=== PATIENT | male | born 1975 | race Caucasian/White ===

== ENCOUNTER 2016-10-23 18:25 | Emergency (ER) | payer OTHER ==
[~2016-10-23] VITALS: Ht 157.5 cm; Wt 165.6 kg
[2016-10-23 19:50] LABS: ABSOLUTE NEUTROPHILS 12.3 thou/uL (1.4-8.2); BASOPHILS 1.1 % (0.0-2.0); EOSINOPHILS 0.3 % (0.0-3.0); HEMATOCRIT 42.7 % (42.0-52.0); HEMOGLOBIN 13.5 gm/dL (14.0-18.0); LYMPHOCYTES 19.9 % (24.0-44.0); MCH 25.9 pg (26.0-34.0); MCHC 31.6 g/dL (28.0-37.0); MCV 81.9 fL (80.0-100.0); MONOCYTES 6.6 % (1.0-8.0); PLATELET COUNT 311 thou/uL (150-400); POLYS 72.1 % (36.0-66.0); RBC 5.22 mil/uL (4.50-6.00); RDW 15.8 % (10.5-14.5); WBC 17.1 thou/uL (4.0-11.0)
[2016-10-23 19:53] LABS: MANUAL DIFF NO
[2016-10-23 19:58] LABS: ANION GAP 5 mmol/L (7-16); BUN 16 mg/dL (7-18); CALCIUM 8.5 mg/dL (8.5-10.1); CHLORIDE 102 mmol/L (98-107); CO2 31 mmol/L (21-32); CREATININE 1.1 mg/dL (0.7-1.3); GLUCOSE 124 mg/dL (74-106); SODIUM 138 mmol/L (136-145)
[2016-10-23 20:05] LABS: ALBUMIN 3.2 g/dL (3.4-5.0); ALKALINE PHOSPHATASE 138 U/L (46-116); MAGNESIUM 1.9 mg/dL (1.8-2.4); SGOT 11 U/L (15-37); SGPT 33 U/L (30-65); TOTAL BILIRUBIN 0.9 mg/dL (<0.1-1.0); TOTAL PROTEIN 7.2 g/dL (6.4-8.2); TROPONIN-I < 0.04 ng/mL (<0.04-0.07)
[2016-10-23 21:55] VITALS: BP 147/82
[2016-10-23] MEDS ORDERED: NEURONTIN 300300 M1 PO (22:16)
[2016-10-23] MEDS ORDERED: PRAZOSIN HCL2 MG PO (22:17)
[2016-10-23] MEDS ORDERED: TRAZODONE HCL100 MG PO (22:17)
[2016-10-23] MEDS ORDERED: ZANAFLEX4 MG PO (22:18)
[2016-10-23] MEDS ORDERED: LEVOTHYROXINE 0.1 MG PO (22:18)
[2016-10-23] MEDS ORDERED: CYMBALTA20 MG PO (22:18)
[2016-10-23] MEDS ORDERED: GLUCOPHAGE1000 MG PO (22:19)
[2016-10-23] MEDS ORDERED: ATORVASTATIN CA40 MG PO (22:19)
[2016-10-23] MEDS ORDERED: BUSPIRONE HCL10 MG PO (22:19)
[2016-10-23] MEDS ORDERED: ASPIRIN325 PO (22:20)
== END 2016-10-23 22:32 | disposition home or self-care (01) ==
LOC: ER 18:25
PROVIDERS: Emergency Medicine
DX: G92 Toxic encephalopathy (principal); Z88.8 Allergy status to other drugs, medicaments and biological substances